=== PATIENT | female | born 1950 | race Caucasian/White ===

== ENCOUNTER → 2016-06-15 | Outpatient (CLI) | payer BC ==
[2016-06-15 11:12] LABS: BASO % 0.6 %; BASO ABS # 0.03 K/uL (0-0.2); COMPLETE YES; EOS % 2.6 %; HEMATOCRIT 38.2 % (37-47); LYMPH % 49.6 %; LYMPH ABS # 2.68 K/uL (1.2-3.4); MEAN CELL VOLUME 95.7 fL (80-100); MEAN CORPUSCULAR HEMOGLOBIN 31.8 pg (25-34); MEAN CORPUSCULAR HGB CONC 33.2 g/dl (32-36); MEAN PLATELET VOLUME 10.3 fL (7.4-10.4); MONO % 9.1 %; NEUT % 38.1 %; PLATELET COUNT 254 K/uL (130-400); RED BLOOD COUNT 3.99 M/uL (4.2-5.4)
[2016-06-15 11:34] LABS: ESTIMATED AVERAGE GLUCOSE 128 mg/dl; HA1C FLAG Normal (Normal)
[2016-06-15 11:40] LABS: BLOOD UREA NITROGEN 23 mg/dl (7-18); BUN/CREATININE RATIO 24.9 (10-20); CALCIUM 8.7 mg/dl (8.5-10.1); CARBON DIOXIDE 29 mmol/L (21-32); CHLORIDE 107 mmol/L (98-107); CREATININE 0.91 mg/dl (0.60-1.20); GLUCOSE 95 mg/dl (70-99); POTASSIUM 4.5 mmol/L (3.5-5.1); SODIUM 142 mmol/L (136-145)
[2016-06-15 11:51] LABS: ALB/GLOB RATIO 0.9 (0.9-2); ALKALINE PHOSPHATASE 69 U/L (45-117); ALT/SGPT 19 U/L (12-78); AST/SGOT 20 U/L (15-37); CHOLESTEROL 196 mg/dl (0-200); HDL CHOLESTEROL 65 mg/dl; LDL CHOLESTEROL CALCULATED 113 mg/dl; TRIGLYCERIDES 88 mg/dl (0-150); VERY LOW DENSITY LIPOPROT CALC 18 mg/dl
== END | disposition home or self-care (01) ==
LOC: C.LABBC 07:38
PROVIDERS: ATTEND Nurse Practitioner Adult Health
DX: Z13.220 Encounter for screening for lipoid disorders (principal); E66.3 Overweight; Z98.890 Other specified postprocedural states

== ENCOUNTER → 2016-06-19 | Outpatient (CLI) | payer BC ==
--- NOTE | 2016-06-19 16:43 | DIAGNOSTIC IMAGING REPORT ---
LEFT FOOT MIN 3 VIEWS ROUTINE CLINICAL HISTORY: HISTORY OF THR OID SURGERY pain. Trauma. COMPARISON: None. DISCUSSION: The bones and joint spaces appear intact. There is no evidence of fracture, dislocation or bony disease. There is no evidence for soft tissue swelling. IMPRESSION: Negative study. Electronically signed by: Fernando Early M.D. 06/19/2016 4:42 PM Dictated Date/Time: 06/19/2016 4:41 PM
== END | disposition home or self-care (01) ==
LOC: C.RADBC 16:23
PROVIDERS: ATTEND Nurse Practitioner Adult Health
DX: M79.672 Pain in left foot (principal); Z98.890 Other specified postprocedural states

== ENCOUNTER → 2017-08-07 | Outpatient (CLI) | payer BC ==
[2017-08-07 11:17] LABS: BASO % 0.4 %; BASO ABS # 0.02 K/uL (0-0.2); EOS % 2.5 %; EOS ABS # 0.12 K/uL (0-0.5); HEMATOCRIT 37.1 % (37-47); HEMOGLOBIN 12.5 g/dL (12.0-16.0); LYMPH % 29.7 %; LYMPH ABS # 1.42 K/uL (1.2-3.4); MEAN CELL VOLUME 94.6 fL (80-100); MEAN CORPUSCULAR HEMOGLOBIN 31.9 pg (25-34); MEAN CORPUSCULAR HGB CONC 33.7 g/dl (32-36); MONO % 8.6 %; MONO ABS # 0.41 K/uL (0.11-0.59); NEUT % 58.8 %; NEUT ABS # 2.81 K/uL (1.4-6.5); PLATELET COUNT 257 K/uL (130-400); RED CELL DISTRIBUTION WIDTH CV 12.6 % (11.5-14.5); RED CELL DISTRIBUTION WIDTH SD 43.3 fL (36.4-46.3); WHITE BLOOD COUNT 4.78 K/uL (4.8-10.8)
[2017-08-07 11:46] LABS: ALBUMIN 3.3 gm/dl (3.4-5.0); ALKALINE PHOSPHATASE 68 U/L (45-117); ALT/SGPT 20 U/L (12-78); AST/SGOT 25 U/L (15-37); BLOOD UREA NITROGEN 23 mg/dl (7-18); CALCIUM 8.5 mg/dl (8.5-10.1); CARBON DIOXIDE 29 mmol/L (21-32); CHOLESTEROL 203 mg/dl (0-200); CREATININE 0.93 mg/dl (0.60-1.20); GLUCOSE 96 mg/dl (70-99); LDL CHOLESTEROL CALCULATED 129 mg/dl; POTASSIUM 3.9 mmol/L (3.5-5.1); SODIUM 141 mmol/L (136-145); TOTAL PROTEIN 7.3 gm/dl (6.4-8.2)
[2017-08-07 11:59] LABS: HEMOGLOBIN A1C 6.2 % (4.5-5.6)
== END | disposition home or self-care (01) ==
LOC: C.LABBC 07:33
PROVIDERS: ATTEND Urology
DX: Z98.890 Other specified postprocedural states (principal); E66.3 Overweight; R73.03 Prediabetes

== ENCOUNTER 2019-02-02 07:51 | Observation (INO) ==
--- NOTE | 2019-01-09 13:44 | PAT Medication Instructions ---
Medication Instructions Date of Service January 09, 2019 Home Medications omega-3 acid ethyl esters 1 gram capsule 1 cap PO DAILY glucosamine HCl 1,500 mg tablet 1,500 mg PO DAILY herbal drugs capsule 1 cap PO DAILY lactase [Lactaid] 3,000 unit PO UD PRN metformin 500 mg PO QAM STOP taking 2 weeks before surgery (or as soon as possible if surgery is within 2 weeks) omega-3 acid ethyl esters 1 gram capsule 1 cap PO DAILY glucosamine HCl 1,500 mg tablet 1,500 mg PO DAILY herbal drugs capsule 1 cap PO DAILY DO NOT take the morning of surgery lactase [Lactaid] 3,000 unit PO UD PRN metformin 500 mg PO QAM Other Notes If you have any questions please call us at [phone] or [phone] or [phone] or [phone]
--- NOTE | 2019-01-13 08:29 | Anesthesiology Consultation ---
Date of Service January 13, 2019 Assessment & Plan (1) Encounter for pre-operative examination: - Check BSG AM DOS Chart Review Chart Review: Pending: Refer to Additional Notes / Consult section (pending preop testing (labs, EKG)) and Patient seen in Pre Admission Testing Teaching & Discussion Pre-Anesthesia Teaching/Discussion Notes: Instructed NPO after midnight before surgery,except medications with 15 cc of water. Medication instructions provided according to the PAT guidelines. History Surgery Operation Date: 02/02/19 08:30 Proposed Procedures p Right Breast Lumpectomy with Needle Localization and with Right [place] Lymph Node - Nicholas Zayas MD, FACS Height/Weight Height: 5 ft 5.5 in Weight: 85 kg Allergies Allergy/AdvReac Type Severity Reaction Status Date / Time oxycodone [From Percocet] AdvReac Unknown "loopy" Verified 01/13/19 08:34 feeling Medications Home Medications Medication Instructions Recorded Confirmed Last Taken omega-3 acid ethyl esters 1 gram 1 cap PO DAILY cap 11/19/18 01/09/19 Unknown capsule glucosamine HCl 1,500 mg tablet 1,500 mg PO DAILY 11/26/18 01/09/19 Unknown herbal drugs capsule 1 cap PO DAILY cap 11/26/18 01/09/19 Unknown lactase [Lactaid] 3,000 unit PO UD PRN 01/09/19 01/09/19 Unknown metformin 500 mg PO QAM 01/09/19 01/09/19 Unknown Past Medical History Medical History Hyperlipidemia per records Breast cancer Lactose intolerance Obesity Pre-diabetes on Metformin Solitary right kidney (donated left kidney) Exercise / Class Metabolic Activity II 4-5 Yardwork/Stairs/Walk up hill Past Family History Family History Grandfather Diabetes Father Cardiac disorder Myocardial infarction Unknown Myocardial infarction Aunt Ovarian cancer Diabetes Past Surgical History Surgical History History of colonoscopy History of nephrectomy, left DONATED KIDNEY History of thyroid surgery PARTIAL (3/4 THYROID REMOVED)- "BENIGN"- EUTHYROID SINCE SURGERY/NO MEDS NEEDED History of tubal ligation Past Anesthesia History No Family Hx of Anesthesia Complications and Other "Slow to wake" with tubal ligation/no similar issues with nephrectomy/partial thyroidectomy. History of PONV No Hx of PONV and No Hx of Motion Sickness Social History Smoking Status: Former smoker tobacco type: cigarettes Do You Dip or Chew Tobacco: No Smoking End Date: SMOKED 5 YRS (COLLEGE YRS), NONE SINCE Hx Alcohol Use: Yes Alcohol type: wine alcohol intake frequency: a few times a week Hx Substance Use: No substance use type: does not use Review of Systems URI symptoms resolved. Patient denies chest pain, shortness of breath, dyspnea on exertion, wheezing, palpitations. Physical Exam Vital Signs VITALS BP 128/81 P 61 TEMP 98.0 SP02 97%RA RESP 16 PHYSICAL Full neck and c-spine range of motion. Full TMJ range of motion. TMD 3 finger breaths Mallampati Score 2 Dentition: intact, upper front crowns Lungs: clear throughout to auscultation Cardiac: regular rate and rhythm, no murmurs noted Spine: normal Carotid arteries: negative bruit Extremities: no edema Testing Laboratory Results 10/16/18 HGBA1C 6.3%
[2019-01-13 09:56] LABS: Basophils # (auto) 0.02 K/uL (0-0.2); Basophils % (auto) 0.4 %; Eosinophils # (auto) 0.08 K/uL (0-0.5); Eosinophils % (auto) 1.5 %; Hematocrit (blood only) 38.6 % (37-47); Hemoglobin 12.9 g/dL (12.0-16.0); Immature Granulocytes # (auto) 0.01 K/uL (0.00-0.02); Immature Granulocytes % (auto) 0.2 %; Lymphocytes # (auto) 1.66 K/uL (1.2-3.4); Lymphocytes % (auto) 31.6 %; Mean Corpuscular Hemoglobin 32.7 pg (25-34); Mean Corpuscular Hgb Conc 33.4 g/dL (32-36); Mean Platelet Volume 10.1 fL (7.4-10.4); Monocytes # (auto) 0.52 K/uL (0.11-0.59); Monocytes % (auto) 9.9 %; Neutrophils # (auto) 2.96 K/uL (1.4-6.5); Neutrophils % (auto) 56.4 %; Platelet Count 295 K/uL (130-400); RDW Coefficient of Variation 12.4 % (11.5-14.5); RDW Standard Deviation 44.6 fL (36.4-46.3); Red Blood Count 3.94 M/uL (4.2-5.4); White Blood Count 5.25 K/uL (4.8-10.8)
[2019-01-13 10:04] LABS: Calcium 9.4 mg/dl (8.5-10.1); Creatinine Clr Calc Pharmacy 61.8 ml/min; Est GFR (African American) 70.9; Est GFR (Non-African American) 61.2; Potassium 4.8 mmol/L (3.5-5.1)
[~2019-02-02 07:51] MED LIST: CEFAZOLIN 2000MG 2,000 MG/15 ML SYR IV SCH; LR 15ML/HR IV SCH
--- NOTE | 2019-02-02 09:05 | Nuclear Medicine Report ---
Study: Lymphoscintigraphy of the breast. HISTORY: Breast carcinoma. Prior studies: None. FINDINGS: Following description of the procedure and informed consent, a total of 5 right periareolar injections were performed. A total of 0.5-5 mCi of technetium 99m lymphoseek was utilized. IMPRESSION: Successful right periareolar lymphoscintigraphy. No complications at the time of the proc edure. Electronically signed by: Fernando Early M.D. 02/02/2019 9:03 AM
[2019-02-02] MEDS ORDERED: fentaNYL citrate 100 MCG/2 ML VIAL IV PRN (09:13)
[2019-02-02] MEDS ORDERED: ONDANSETRON INJ 2 MG/ML 2 ML VIAL IV PRN ×2 (09:13→13:34)
[2019-02-02] MEDS ORDERED: ATROPINE SULFATE 0.1 MG/ML 10ML SYR IV PRN (09:13)
[2019-02-02] MEDS ORDERED: ePHEDrine sulfate 50 MG/ML AMP IV PRN (09:13)
[2019-02-02] MEDS ORDERED: MEPERIDINE HCL 25 MG/ML CARP IV PRN (09:13)
[2019-02-02] MEDS ORDERED: PHENYLEPHRINE 100MCG/ML 5ML SYR IV PRN (09:13)
[2019-02-02] MEDS ORDERED: LABETALOL HCL IV 5 MG/ML 20ML IV PRN (09:13)
[2019-02-02] MEDS ORDERED: PROPOFOL IV EMULSION 10 MG/ML 20 ML VIAL IV ONE (09:52)
[2019-02-02] MEDS ORDERED: LIDOCAINE HCL 2% 2 ML VIAL/AMP(20MG/ML) INFIL ONE (09:52)
[2019-02-02] MEDS ORDERED: MIDAZOLAM HCL 1 MG/ML 2ML VIAL ONE (09:52)
[2019-02-02] MEDS ORDERED: DEXAMETHASONE SOD INJ 4 MG/ML VIAL ONE (09:52)
[2019-02-02] MEDS ORDERED: fentaNYL citrate 100 MCG/2 ML VIAL ONE (09:52)
[2019-02-02] MEDS ORDERED: ONDANSETRON INJ 2 MG/ML 2 ML VIAL ONE (09:52)
--- NOTE | 2019-02-02 10:16 | History & Physical Bridge Note ---
Date of Service February 02, 2019 History & Physical Bridge Note I have examined the patient, reviewed the History & Physical and in the interval since the performance of the History & Physical I have noted the following changes of clinical significance: no changes noted
[2019-02-02] MEDS ORDERED: ISOSULFAN BLUE 10 MG/ML VIAL 5 ML ONE (10:21)
[2019-02-02] MEDS ORDERED: BUPIVACAINE 0.5 % 5 MG/1 ML MPF 30ML VIAL ONE (10:21)
[2019-02-02] MEDS ORDERED: METHYLENE BLUE 0.5% 10 ML VIAL ONE (10:39)
[2019-02-02] MEDS ORDERED: PHENYLEPHRINE HCL 10 MG/ML VIAL ONE (11:25)
--- NOTE | 2019-02-02 11:54 | Operative Report ---
PG Post Operative Report Pre & Post Diagnosis Operation Date: 02/02/19 11:20 Pre-Op Diagnosis: Right Breast Cancer Post-Op Diagnosis: Right Breast Cancer I identified the patient and participated in the time-out.: Yes Procedure Operation Date: 02/02/19 11:20 Actual Procedures p Right Breast Lumpectomy with Needle Localization with Right [place] Lymph Node(Right) - Nicholas Zayas MD, FACS Surgeon Nicholas Zayas MD, FACS Director Of Tax Services [employer] Santana Estimated Blood Loss 10 Findings Consistent with Post-Op Diagnosis Specimens RT axillary LN and Rt breast tissue Description of Procedure Patient is brought in the operating room placed the operating table in the supine position Her right arm was extended on an armboard Her rightBreast and axilla were prepped and draped in usual fashion, She had a needle placed at the breast center Preoperatively Half percent plain Marcaine was used To anesthetize the skin- Patient was made i n the right axilla carried dissection down using the neoprobe To localize the lymph node which was sent as the sentinel lymph node for frozen section.The frozen section was negative. During the frozen section right lumpectomy was performed. Optical incision was made around the needle Dissection carried down deeply around the needle to the chest wall Tissue was marked with the needle/skin lateral,Long silk suture inferior and short silk suture superior With methylene blue in the deep site.Tissue was placed into the Faxitron An image sent to Dr. Washington The clip was in the center of the specimen. She will tissue was taken superiorly and inferiorly.This was marked with long silk suture lateral short silk suture medial and methylene blue new margin .Both of the specimens took the tissue medially and deep. Wounds were closed by reapproximating the deep tissue using 2 oh plain suture and then the skin in the axilla Using 4-0 nylon suture. Breast tissue is closed with the skin Doing 4-0 Monocryl and 5-0 Prolene Steri- Strips applied.A dressing was applied patient taken to recovery room in stable condition. My nurse assistant helped with prepping draping removal of the breast tissue and lymph node and closure of the wounds. I attest to the content of the Intraoperative Record and any orders documented therein. Any exceptions are noted below.
--- NOTE | 2019-02-02 11:54 | Post Operative Brief Note ---
PG Immediate Post Op with CF Date of Surgery February 02, 2019 Pre & Post Diagnosis Operation Date: 02/02/19 11:20 Pre-Op Diagnosis: Right Breast Cancer Post-Op Diagnosis: Right Breast Cancer I identified the patient and participated in the time-out.: Yes Procedure Operation Date: 02/02/19 11:20 Actual Procedures p Right Breast Lumpectomy with Needle Localization with Right [place] Lymph Node(Right) - Nicholas Zayas MD, FACS Surgeon Nicholas Zayas MD, FACS Social Media Intern Shin Santana Estimated Blood Loss 10 Findings Consistent with Post-Op Diagnosis Specimens Specimen Description: Frozen#1 Right [place] Lymph Nodes A. Right breast tissue skin/needle-lateral methylene blue-deep long silk-inferior short silk-superior. B. Additional inferior tissue long silk-lateral short silk-medial methylene blue-new margins. C. Additional superior tissue long silk-lateral short silk-medial methylene blue-new margins.
[2019-02-02] MEDS ORDERED: ACETAMINOPHEN 1,000 MG/100 ML VIAL IV STA (12:01)
--- NOTE | 2019-02-02 12:53 | Anesthesiology Progress Note ---
Date of Service February 02, 2019 Anesthesia Post Procedure Vital Signs Vital Signs: Temp Pulse Resp BP Pulse Ox 02/02/19 12:50 37.4 C 68 18 125/86 95 02/02/19 12:40 72 18 138/74 94 02/02/19 12:30 72 18 141/77 H 100 02/02/19 12:20 77 19 140/82 100 02/02/19 12:12 36.3 C L 81 20 158/85 H 100 Transfer of Care Handoff Completed per policy Notes Mental Status: alert / awake / arousable Patient Amnestic to Procedure: Yes Nausea / Vomiting: adequately controlled Pain: adequately controlled Airway Patency, RR, SpO2: stable & adequate BP & HR: stable & adequate Hydration State: stable & adequate Anesthetic Complications: no major complications apparent and Pt Satisfied with anesthetic care
[2019-02-02] MEDS ORDERED: IBUPROFEN 600 MG TAB PO PRN (13:34)
[2019-02-02] MEDS ORDERED: SODIUM CHLORIDE 0.9% 1000ML 1,000 ML IV SCH (13:34)
[2019-02-02] MEDS ORDERED: HYDROCODONE/ACETAMOPHEN 5/325MG TAB PO PRN ×2 (13:34)
[2019-02-02] MEDS ORDERED: PROMETHAZINE HCL 12.5 MG in SODIUM CHLORIDE 0.9% 50 ML IV PRN (13:34)
[2019-02-02] MEDS ORDERED: ACETAMINOPHEN 325 MG TAB PO PRN (13:34)
[2019-02-02] MEDS ORDERED: PROMETHAZINE HCL 25 MG in SODIUM CHLORIDE 0.9% 50 ML IV PRN (13:34)
[2019-02-02] MEDS ORDERED: MoRPHine SULFATE 2 MG/ML CARP IV PRN ×2 (13:34)
--- NOTE | 2019-02-02 15:36 | Mammography Report ---
NEEDLE LOCALIZATION RIGHT BREAST: 02/02/2019 CLINICAL HISTORY: 68-year-old woman with biopsy-proven invasive carcinoma in the right upper outer po sterior breast. She presents for preoperative needle and wire localization prior to lumpectomy. COMPARISON: Comparison is made to exams dated: 12/24/2018 mammogram, 12/16/2018 mammogram, 12/04/2018 [facility], 06/13/2011 mammogram, 01/19/2009 mammogram, and 01/26/2019 [facility]. PATIENT CONSENT: Specific risks to the procedure were explained to the patient and informed consent w as obtained both verbally and in writing. They include: Bleeding, infection, puncture of adjacent st ructure, nontarget localization, medication reaction, sampling error, dizziness/lightheadedness. A t imeout was performed and the right breast was confirmed as a site for preoperative localization. The patient reported stopping fish oil prior to surgery and also reported she did not eat or drink anyth ing this morning that would preclude anesthesia. PROCEDURE DESCRIPTION: Prior right breast imaging was reviewed. The hourglass shaped biopsy marker i n the upper outer posterior right breast is the intended target for localization. With the patient i n the seated position, the right breast was placed in lateralmedial compression. A tomosynthesis sc out view was obtained which demonstrates the biopsy marker within the targeting window of an alphanum andrew grid. The biopsy marker was targeted. The skin of the lateral right breast was cleansed with a lcohol. 1% buffered Lidocaine without epinephrine was administered as local anesthesia. A 5cm Hawkin s II needle and wire combination was inserted into the breast. Optimal positioning was confirmed and the wire was locked in place, leaving both the needle and wire within the breast, as per surgeon's pr eference. The entire procedure including approach and needle length were discussed with the operatin g surgeon prior to surgery. The patient tolerated the procedure well and there was no immediate comp lication. She was sent to the operating room in satisfactory condition. A specimen radiograph was obtained which demonstrates the localizing needle and wire combination and biopsy marker centrally within the specimen. These findings are consistent with successful preoperat lo localization and subsequent surgical excision. IMPRESSION: NEEDLE LOCALIZATION Status post preoperative needle and wire localization for biopsy-proven carcinoma in the upper outer posterior right breast. The imaged specimen includes the intended abnormalities. Final surgical pat hology is pending. Smita Washington M.D. ay/:02/02/2019 12:06:53 Attending Technologist: RT Pau,R, M, [facility] Supervisor [employer]: Tabatha Wagner, [facility]
--- NOTE | 2019-02-02 16:28 | Hospitalist Consultation ---
Date of Consultation February 02, 2019 Assessment & Plan (1) H/O breast biopsy: s/p R breast lumpectomy on 02/[address] Zayas As per gen surg Pre-op Hb 12.9 (2) Prediabetes: Started on metformin for A1c 6.3, most recent was 6.2 States she feels better on metformin (3) DVT prophylaxis: As per gen surg History of Present Illness Attending Physician: Nicholas Zayas MD, FACS History of Present Illness 68 y/o F who was admitted on 02/02 s/p R breast lumpectomy with Dr. Zayas. Pt is doing well post-op. She states she has mild soreness related to lumpectomy site, but manageable. Tolerating PO without issue. Pt denies fever, SOB, chest pain, abd pain, n/v/c/d, LE pain or swelling. Allergies Allergy/AdvReac Type Severity Reaction Status Date / Time oxycodone [From Percocet] AdvReac Unknown "loopy" Verified 02/02/19 09:06 feeling Home Medications Home Medications Medication Instructions Recorded Confirmed Type metformin 500 mg PO QAM 01/09/19 02/02/19 History Patient History Medical History Breast cancer Lactose intolerance Obesity Pre-diabetes on Metformin Solitary right kidney (donated left kidney) Surgical History History of colonoscopy History of nephrectomy, left DONATED KIDNEY History of thyroid surgery PARTIAL (3/4 THYROID REMOVED)- "BENIGN"- EUTHYROID SINCE SURGERY/NO MEDS NEEDED History of tubal ligation Family History Grandfather Diabetes Father Cardiac disorder Myocardial infarction Unknown Myocardial infarction Aunt Ovarian cancer Diabetes Social History Preferred Language: Faroese Communication Ability: Effective Visual Impairment: No Limitations Hearing Ability: Normal Special Client Bus Driver Required: No Beliefs That Will Affect Care: Bahai Bahai Beliefs: BAHAI marital status: Single Current Living Situation: Other Current Living Situation Comment: SON current occupational status: employed current occupation: GEOLOGIC TECHNICIAN Other Information That Helps Us Care for You: No Feels Safe at Home: Yes Smoking Status: Former smoker Tobacco Type: cigarettes ; Age Started Using Tobacco: 19 ; Age Quit Using Tobacco: 29 ; packs per day: 0.5 ; Do You Dip or Chew Tobacco: No ; Smoking End Date: SMOKED 5 YRS (COLLEGE YRS), NONE SINCE ; Hx Alcohol Use: Yes Alcohol type: wine Alcohol Intake Frequency: Weekly Hx Substance Use: No Childhood Exposure to Second-Hand Smoke: Yes Dental Care, Regularly: Yes Physical Activity Frequency: 5-6 Times per Week Seatbelt Use: always Sunscreen Use: No Review of Systems Review of Systems: Pertinent positives and negatives reviewed in HPI--all others negative Physical Exam Constitutional: WD/WN, vitals as above Eyes: normal visual boss by confrontation and + anicteric sclerae Neck: normal visual inspection and trachea midline Respiratory: normal respiratory effort, lungs clear to auscultation Cardiovascular: Rate/Rhythm: regular rate and regular rhythm Gastrointestinal (Abdomen): Inspection/Auscultation: abdomen not distended Percussion/Palpation: abdomen soft; abdomen nontender Musculoskeletal: Head/Neck/Chest: normocephalic and head atraumatic negative for edema, peripheral pulses intact Skin: no rashes, warm and dry Neurologic: awake; not confused Speech / Cognition: normal speech Psychiatric: A+Ox3, euthymic affect Results & Data Vital Signs (Past 12 Hours) Vital Signs Temp Pulse Pulse Resp BP Pulse Ox 02/02/19 15:22 36.7 C 78 18 135/85 92 02/02/19 14:17 78 16 138/80 93 02/02/19 13:54 71 16 142/87 H 91 02/02/19 13:00 37.4 C 73 18 114/75 97 02/02/19 12:50 37.4 C 68 18 125/86 95 02/02/19 12:40 72 18 138/74 94 02/02/19 12:30 72 18 141/77 H 100 02/02/19 12:20 77 19 140/82 100 02/02/19 12:12 36.3 C L 81 20 158/85 H 100 PG Care Time/CCT Total # of Minutes Spent Total Time Spent with Patient: Total time spent is greater than 50% in coordination of care (as documented) at patient's floor/unit and/or counseling patient:
[2019-02-02] MEDS: CEFAZOLIN 2000MG 2,000 MG/15 ML SYR IV SCH (17:50)
[2019-02-03] MEDS: CEFAZOLIN 2000MG 2,000 MG/15 ML SYR IV SCH ×2 (02:16→09:14)
--- NOTE | 2019-02-03 06:08 | Discharge Summary ---
Date of Service February 03, 2019 Principal Diagnosis Right breast cancer Discharge Exam Patient is awake and alert Her dressing has some minimal drainage Her pain is well controlled Discharge Data Allergies Allergy/AdvReac Type Severity Reaction Status Date / Time oxycodone [From Percocet] AdvReac Unknown "loopy" Verified 02/02/19 09:06 feeling Consultations 02/02/19 13:34 Consult Case Management - Discharge Planning Routine 02/02/19 13:38 Consult Hospitalist Routine Procedures Performed Operation Date: 02/02/19 11:20 Actual Procedures p Right Breast Lumpectomy with Needle Localization with Right [place] Lymph Node(Right) - Nicholas Zayas MD, FACS Hospital Course (1) H/O lumpectomy: Patient brought into the hospital on 02/02/2019 For elective right breast surgery She has a history of biopsy-proven right breast cancer. On 02/02/2018 patient was taken the operating room where she underwent right lumpectomy With sentinel lymph node biopsy [place] lymph node was negative on frozen section And she tolerated the operation very well. She is done well overnight and is felt stable for discharge today Be followed in the surgical clinic next week Total Time Total Time Spent Total Time Spent (In Minutes): 15 Discharge Plan Discharge Items Patient Disposition: Home - Home Health Services Reason For Visit: Right Breast Cancer W/HOSP LOC & NM LYMPH SCAN Discharge Diagnosis: right breast lumpectomy Activity: As commented below Activity Comment: light activity for 4 weeks Lifting: No more than 25 pounds Bathing: No limitations Bathing Comment: may shower. no soaking in tubs Sexual Activity: When tolerated Exercise/Sports: Wait until after follow-up appointment Exercise Comment: light activity for 4 weeks Driving/Machine Use: Resume 1 day after discharge Non-emergency contact: Primary Care Provider and Surgeon Call non-emergency contact if: you have any medication questions, your symptoms worsen, your pain is not controlled, your pain is worsening, your pain is unusual for you, your pain is concerning for you, you have a fever, your temperature is above 101.5, your wound has increased redness, your wound has increased drainage and your wound pain has increased Follow-up/Referrals: Nicholas Zayas MD, FACS [Physician] - Phi Luis DO [Primary Care Provider] - Diet: Carb Consistent or DM2 Addtl Attending Provider Instructions: SPECIAL CARE INSTRUCTIONS: * Cover incisions and change daily for comfort/drainage. * Leave steri strips in place * May use ibuprofen for pain as tolerated. * Expect some swelling and bruising. Call your doctor if: * Temperature above 101 degrees * Pain not relieved by pain medicine ordered * There is increased drainage or redness from any incision * You have any unanswered questions or concerns [phone]. FOLLOW UP VISIT: If not already scheduled, please call the office for a follow-up visit. OFFICE PHONE NUMBER: Dr. Zayas Office for next week- some suture removal Pending Studies at Discharge: Yes Studies:: pathology Stand-Alone Forms: My [facility], Smoking Cessation Medications and DC Order Prescriptions: New hydrocodone-acetaminophen [[place]] 5-325 mg tablet 1 - 2 tab PO Q6H PRN (Reason: pain) Qty: 20 RF: 0 Continued metformin 500 mg tablet 500 mg PO QAM RF: 0 Discharge Orders: Discharge Order (Routine); Ordered 02/03/19 Ordered By: Nicholas Zayas Admission Data Admit Date/Time: 02/02/19 12:01 Attending Provider: Nicholas Zayas Admit Provider: Nicholas Zayas Primary Care Provider: Phi Luis Other Providers: Kenneth Fry
--- NOTE | 2019-02-03 10:04 | Anesthesiology Progress Note ---
Date of Service February 03, 2019 Anesthesia Post Procedure Vital Signs Vital Signs: Temp Pulse Pulse Resp BP Pulse Ox 02/03/19 09:09 36.7 C 61 16 140/80 98 02/03/19 07:38 36.7 C 61 16 140/80 98 02/03/19 03:49 36.5 C 63 16 149/82 H 97 02/02/19 22:41 36.6 C 67 16 116/65 94 02/02/19 19:19 36.7 C 73 18 136/79 93 02/02/19 16:25 36.7 C 75 18 132/68 93 02/02/19 15:22 36.7 C 78 18 135/85 92 02/02/19 14:17 78 16 138/80 93 02/02/19 13:54 71 16 142/87 H 91 02/02/19 13:00 37.4 C 73 18 114/75 97 02/02/19 12:50 37.4 C 68 18 125/86 95 02/02/19 12:40 72 18 138/74 94 02/02/19 12:30 72 18 141/77 H 100 02/02/19 12:20 77 19 140/82 100 02/02/19 12:12 36.3 C L 81 20 158/85 H 100 Pain Intensity Right Chest: Pain Intensity: 2 Notes Mental Status: alert / awake / arousable and participated in evaluation Nausea / Vomiting: adequately controlled Pain: adequately controlled Airway Patency, RR, SpO2: stable & adequate BP & HR: stable & adequate Hydration State: stable & adequate Anesthetic Complications: no major complications apparent
== END 2019-02-03 11:24 | disposition home or self-care (01) ==
LOC: 3W 07:51 → PAT 07:51